=== PATIENT | female | born 1985 | race Two or more races ===

== ENCOUNTER 2024-07-21 11:55 | Inpatient (IN) | payer MEDICAID, OTHER ==
[~2024-07-21] VITALS: Ht 154.9 cm; Wt 87.2 kg
[2024-07-21 13:01] LABS: Basophils # (auto) 0 10 ^3/uL (0-0.2); Basophils % (auto) 0.2 % (0.0-2.0); Eosinophils # (auto) 0 10 ^3/uL (0-0.8); Eosinophils % (auto) 0.1 % (0.0-7.0); Hematocrit 46.1 % (36.0-46.0); Hemoglobin 14.9 g/dL (12.2-16.2); Lymphocytes % (auto) 4.2 % (10.0-50.0); Mean Corpuscular Hemoglobin 27.1 pg (28.0-32.0); Mean Corpuscular Hgb Conc. 32.2 g/dL (32.0-36.0); Monocytes # (auto) 1.4 10 ^3/uL (0-1.3); Monocytes % (auto) 5.7 % (0.0-12.0); Neutrophils # (auto) 21.4 10 ^3/uL (1.6-8.6); Neutrophils % (auto) 89.8 % (37.0-80.0); Nucleated Red Blood Cells % 0.1 %; Platelet Count (auto) 230 10^3/uL (140-450); Red Blood Cells 5.49 10^6/uL (4.0-5.20); Red Cell Distribution Width 14.5 % (11.8-14.3); White Blood Cell 23.8 10^3/uL (4.4-10.8)
[2024-07-21 13:16] LABS: INR 1.02 (0.9-1.15); Partial Thromboplastin Time < 20.0 SEC (24.5-34.5); Prothrombin Time 10.8 sec (9.3-11.8)
[2024-07-21 13:18] LABS: Alanine Aminotransferase 18 U/L (7-40); Albumin 4.7 g/dL (3.2-4.8); Alkaline Phosphatase 113 U/L (46-116); Anion Gap 11 (5-15); BUN/Creatinine Ratio 14.7 (10.0-20.0); Blood Urea Nitrogen 15 mg/dL (9-23); Calcium 9.5 mg/dL (8.7-10.4); Carbon Dioxide 24 mmol/L (20-31); Potassium 3.6 mmol/L (3.5-5.1); Sodium 143 mmol/L (136-145)
[2024-07-21 13:19] LABS: Bilirubin, Total 0.4 mg/dL (0.2-1.0); Total Protein 7.6 g/dL (5.7-8.2)
--- NOTE | 2024-07-21 13:39 | ED.PDOC ---
GI ASSESSMENT HPI Comments HPI: Poor Historian. 39-year-old female presents to emergency department for one day history of periumbilical pain with the associated nausea vomiting diarrhea nonbloody nonbilious yellow in color and some mild dizziness. Patient is ambulatory in the ED. patient is currently on her menstrual cycle for the last three days with some associated lower pelvic cramps that she says is usual for her during her cycle. Incidentally patient status post miscarriage at least two months ago. Her bleeding has stopped three weeks after the miscarriage. Patient states she is on prednisone for recent diagnosis of bronchitis. VITALS: Temp: 98.9 F RR: 17 02 sat : 100 % on room air HR: 105 BP: 124/73 PMH: denies PSH: 1x , cholecystectomy, Social history: denies tobacco use, denies ETOH use, denies drug use Medications: denies Allergies: penicillin REVIEW OF SYSTEMS: CONSTITUTIONAL: Denies acute: fever, diaphoresis, chills, HEAD: Denies acute: headache, photophobia Eyes: Denies acute: Double vision, vision loss, eye pain, eye discharge. EARS: Denies acute: tinnitus, hearing loss, ear discharge, ear pain, THROAT: Denies acute: sore throat, swelling, difficulty swallowing , pain with swall owing, change in voice. NECK: Denies acute: neck pain, neck swelling, stiff neck. HEART: Denies acute : chest pain, palpitations, LUNGS: Denies acute: SOB, wheezing, cough, hemoptysis ABDOMEN: Denies acute: melena , hematemesis, hematochezia SKIN: Denies acute: rash, redness, lesions, itchiness. EXTREMITIES: Denies acute: calf pain, numbness, tingling, weakness, denies pain in extremity. Denies acute: Low back pain. Neuro: Denies acute: focal neurological deficit, motor or sensory focal neurological deficit, tremors, seizure like activity, confusion, change in mental status, loss of bowel or bladder function, cauda equina like symptoms. : Denies acute: dysuria, hematuria, flank pain, increase in urinary frequency. PSYCH: Denies acute: hallucination, suicidal ideation, homicidal ideation. FEMALE: Denies acute: abnormal vaginal bleeding, foul odor, unusual discharge. PHYSICAL EXAM: General: Moderate acute distress, awake and alert. Head: normocephalic, atraumatic. Neck: supple, trachea is midline, no swelling. Throat: Normal phonation. Eyes:, no erythema, no purulent discharge, no proptosis, no icterus. Heart: regular rate, regular rhythm, no significant murmur appreciated. Lungs: no apparent respiratory distress, Able to speak in full sentences. No wheezing, no rhonchi, no crackles. No stridors Clear to auscultation bilaterally. Abdomen: Periumbilical tender to palpation, non distended, soft, no guarding, no rebound, + bowel sounds. Neuro: Awake, Alert, oriented to name, self, situation, follows commands GCS=15. Speech is normal. Skin: no petechia, no purpura, no cyanosis, non-pale, not jaundice. Lower extremities: --no - Pitting edema no deformity, no focal swelling, no calf TTP. Makes eye contact. moves all four extremities. Face: no apparent facial droop. Ambulating in the ED independently. Chief Complaint: Nausea/Vomiting Time Seen by MD: 12:16 Reviewed Notes: Nurses Notes, Allergies Allergies: Coded Allergies: Ciprofloxacin (Verified Allergy, Unknown, 07/21/24) Information Source: Patient Mode of Arrival: Ambulatory Was a procedure done? Was a procedure done?: No X-Ray, Labs, Meds, VS Vital Signs Date Time Temp Pulse Resp B/P (MAP) Pulse Ox O2 Delivery O2 Flow Rate FiO2 07/21/24 20:23 92 12 100 Room Air 07/21/24 20:14 97.7 92 12 103/57 (72) 100 97.7 07/21/24 16:52 98.6 89 18 117/71 (86) 100 98.6 07/21/24 16:52 89 18 100 Room Air 07/21/24 15:32 130/77 07/21/24 12:38 74 07/21/24 12:36 98.9 105 17 124/73 (90) 100 Lab Test 07/21/24 17:00 07/21/24 16:57 07/21/24 14:32 07/21/24 12:50 Range/Units Stool Occult Blood Positive Negative Stool Occult Blood Sample #3 Negative Stool for White Cells Few SARS-CoV-2 Antigen (Rapid) Negative NEGATIVE Lactic Acid Level 2.0 0.4-2.0 mmol/L White Blood Count 23.8 H 4.4-10.8 10^3/uL Red Blood Count 5.49 H 4.0-5.20 10^6/uL Hemoglobin 14.9 12.2-16.2 g/dL Hematocrit 46.1 H 36.0-46.0 % Mean Corpuscular Volume 84.0 80.0-100.0 fL Mean Corpuscular Hemoglobin 27.1 L 28.0-32.0 pg Mean Corpuscular Hemoglobin Concent 32.2 32.0-36.0 g/dL Red Cell Distribution Width 14.5 H 11.8-14.3 % Platelet Count 230 140-450 10^3/uL Mean Platelet Volume 9.3 6.9-10.8 fL Neutrophils (%) (Auto) 89.8 H 37.0-80.0 % Lymphocytes (%) (Auto) 4.2 L 10.0-50.0 % Monocytes (%) (Auto) 5.7 0.0-12.0 % Eosinophils (%) (Auto) 0.1 0.0-7.0 % Basophils (%) (Auto) 0.2 0.0-2.0 % Neutrophils # (Auto) 21.4 H 1.6-8.6 10 ^3/uL Lymphocytes # (Auto) 1.0 0.4-5.4 10 ^3/uL Monocytes # (Auto) 1.4 H 0-1.3 10 ^3/uL Eosinophils # (Auto) 0 0-0.8 10 ^3/uL Basophils # (Auto) 0 0-0.2 10 ^3/uL Nucleated Red Blood Cells 0.1 % Prothrombin Time 10.8 9.3-11.8 sec Prothrombin Time INR 1.02 0.9-1.15 Activated Partial Thromboplast Time < 20.0 L 24.5-34.5 SEC Sodium Level 143 136-145 mmol/L Potassium Level 3.6 3.5-5.1 mmol/L Chloride Level 108 H 98-107 mmol/L Carbon Dioxide Level 24 20-31 mmol/L Anion Gap 11 5-15 Blood Urea Nitrogen 15 9-23 mg/dL Creatinine 1.02 0.550-1.02 mg/dL Glomerular Filtration Rate Calc 72 >90 mL/min BUN/Creatinine Ratio 14.7 10.0-20.0 Serum Glucose 135 H 74-106 mg/dL Calcium Level 9.5 8.7-10.4 mg/dL Magnesium Level 1.9 1.6-2.6 mg/dL Total Bilirubin 0.4 0.2-1.0 mg/dL Aspartate Amino Transferase (AST) 10 L 13-40 U/L Alanine Aminotransferase (ALT) 18 7-40 U/L Alkaline Phosphatase 113 46-116 U/L Total Protein 7.6 5.7-8.2 g/dL Albumin 4.7 3.2-4.8 g/dL Lipase 26 12-53 U/L Beta HCG, Quantitative 2.2 1.5-4.2 mIU/mL Test 07/21/24 12:34 Range/Units Urine Color Dark-brown Yellow Urine Clarity Ex.turbid Clear Urine pH 5.5 5.0-9.0 Urine Specific [place] 1.025 1.001-1.035 Urine Protein 2+ H Negative Urine Ketones Trace Negative Urine Blood 3+ H Negative /uL Urine Nitrite Negative Negative Urine Bilirubin Negative Negative Urine Urobilinogen Normal Negative mg/dL Urine Leukocyte Esterase 2+ Negative /uL Urine RBC 7730 0 - 4 /hpf Urine WBC 63 0 - 5 /hpf Urine Squamous Epithelial Cells Mod <5 /hpf Urine Bacteria None seen None Seen /hpf Urine Mucus Moderate None Seen Urine Glucose Normal Normal mg/dL Current Medications Medications (Trade) Dose Ordered Sig/[place] Route Start Time Stop Time Status Last Admin Sodium Chloride 1,000 ml @ 1,000 mls/hr Q1H ONCE IV 07/21/24 13:45 07/21/24 14:44 DC 07/21/24 15:30 Ondansetron HCl (Zofran) 8 mg ONCE ONCE IV 07/21/24 13:45 07/21/24 13:46 DC 07/21/24 15:33 Fentanyl Citrate 100 mcg ONCE ONCE IV 07/21/24 13:45 07/21/24 13:46 DC 07/21/24 15:32 Metronidazole 100 ml @ 100 mls/hr ONCE ONCE IV 07/21/24 15:00 07/21/24 15:59 DC 07/21/24 18:31 Ciprofloxacin 200 ml @ 200 mls/hr ONCE ONCE IV 07/21/24 20:15 07/21/24 21:14 DC 07/21/24 20:30 Diphenhydramine HCl (Benadryl Injection) 25 mg ONCE ONCE IV 07/21/24 21:15 07/21/24 21:16 DC 07/21/24 21:[address] [address] Ph: [phone] DIAGNOSTIC IMAGING Diagnostic Imaging Report : [id number] Signed PATIENT: DANGELO LITTLE MACCT: [id number] UNIT: [id number] : 1985 LOC: ER ROOM / BED: / AGE / SEX: 39 / F ADM STATUS: REG ER SERVICE [id number] ORDERING PHYSICIAN: PATRICE FELDMAN DO PROCEDURE(s): ABPL - CT AB PEL WO CON-NO ORAL OR IV REASON: Umbilical pain n/v/d ORDER NUMBER(s): [id number], ACCESSION NUMBER(s): [id number] Exam: CT CT AB PEL WO CON-NO ORAL OR IV History: Umbilical pain n/v/d Comparison Study: None available at time of dictation. TECHNIQUE: Multidetector CT of the abdomen was performed from lung bases to pubic symphysis. Imaging was performed without IV contrast. Axial, coronal and sagittal multiplanar reformats were obtained from the axial data set by the technologist. Radiation Dose Information: CT Dose: CTDI volume is 13.04 mGy. Dose-length product is 662.69 mGy*cm FINDINGS: Evaluation of solid organs is limited due to lack of intravenous contrast use. Findings: Lung Bases: No acute or significant lung base finding. Normal heart size. No pleural or pericardial effusion. Liver: The liver is normal in size. No focal lesions. Gallbladder and Biliary Tree: Gallbladder has been surgically removed. Spleen: Unremarkable Pancreas: The pancreas is grossly normal in appearance. Adrenal Glands: Unremarkable Kidneys: Kidneys are grossly normal without calculi or hydronephrosis. Bladder: Grossly unremarkable for degree of distention. Bowel: The stomach is grossly normal in appearance. Small bowel and colon are normal in caliber and distribution. The appendix is not visualized; however, no secondary findings of acute appendicitis identified. Ascites: Absent Lymphadenopathy: No mesenteric, retroperitoneal or periportal lymphadenopathy. Abdominal Wall and Mesentery: Unremarkable. Vasculature: The visualized abdominal aorta is normal in size and caliber. Evaluation of abdominal and pelvic vessels is limited due to lack of intravenous contrast. Pelvic Organs: Unremarkable Musculoskeletal: No aggressive focal bony lesions, acute fractures or dislocation. Soft tissues: Unremarkable IMPRESSION: 1. Gallbladder is been surgically removed. 2. There is no abnormally dilated bowel. 3. There are no findings of umbilical hernia. 4. Pancreas appears normal. Radiation optimization: All CT scans at this facility use at least one of these dose optimization techniques: automated exposure control mA and/or kV adjustment per patient size (includes targeted exams where dose is matched to clinical indication) or iterative reconstruction. ATED BY: CHELA HOGUE Jr., DO DICTATED DATE/TIME: 07/21/241433 SIGNED BY: CHELA HOGUE Jr., SIGNED DATE/TIME: 07/21/241433 CC: [place] [id number] Ph: [phone] DIAGNOSTIC IMAGING Diagnostic Imaging Report : [id number] Signed PATIENT: DANGELO LITTLE MACCT: [id number] UNIT: [id number] : 1985 LOC: ER ROOM / BED: / AGE / SEX: 39 / F ADM STATUS: REG ER SERVICE [id number] ORDERING PHYSICIAN: PATRICE FELDMAN DO PROCEDURE(s): PELUS - PELVIC REASON: vag bleed ORDER NUMBER(s): [id number], ACCESSION NUMBER(s): [id number] EXAM: US Pelvis Transabdominal, Complete CLINICAL INDICATION: vag bleed TECHNIQUE: Real-time complete transabdominal pelvic ultrasound with image documentation. COMPARISON: None FINDINGS: UTERUS/CERVIX: Nabothian cysts in the cervix. No myometrial mass. The uterus measures 7 x 5 x 5 cm. The endometrial stripe measures 0.33 cm in thickness. RIGHT OVARY: Unremarkable. Normal blood flow. The right ovary measures 3 x 2 x 3 cm. LEFT OVARY: Left ovary not visualized. FREE FLUID: No free fluid. BLADDER: Unremarkable as visualized. Wall is normal thickness for degree of distention. OTHER FINDINGS: . . IMPRESSION: Left ovary not visualized. Otherwise, unremarkable exam. ATED BY: VIBHA MARR MD DICTATED DATE/TIME: 07/21/24 1437 SIGNED BY: VIBHA MARR MD SIGNED DATE/TIME: 07/21/24 1437 CC: Time of 1ST Reevaluation: 20:09 Reevaluation 1ST: Improved Time of 2ND Reevaluation: 21:05 (The case was discussed with the admitting team (HPI, physical exam, labs and diagnostic tests that were available at the time of disposition, ED course, treatment plan) on the phone. They agreed to admit the patient to their service and assume care of this patient from this point forward. P[facility]EL SANTAMARIA. ) Patient Education/Counseling: Diagnosis, Treatment Family Education/Counseling: No Family Present Comments MDM: Patient presented with the above HPI.----- periumbilical pain -workup was initiated. patient was found with the above mentioned diagnosis. the following medications were ordered: benadyrl, cipro, flagyl, fentanyl, zofran, IV fluids the following tests were ordered:stool bacterial culture, ova and parasite, C diff, blood culture, stool occult blood, stool WBC, lactic acid, magnesium, lipase, COVID, CT abdomen and pelvis, pelvic US, type and screen, PT/PTT, Pt time, UA, CBC, CMP, beta HCG, EKG x 1 Patient ED course and VS have been stabilized. Patient has been reassessed in the ED and remained in a stable condition. Patient has been observed in the ED adequate length of time to insure improvement/stability. Escalation of care considered: Consideration of escalation to observation or admission. patient was ADMITTED to the medicine team for further evaluation and treatment of their presentation. All the reports of any imaging studies that were ordered by myself were reviewed by myself. Departure 1 Departure Time of Disposition: 14:49 Impression: Primary Impression: Periumbilical pain Additional Impressions: Nausea vomiting and diarrhea Leukocytosis Gastroenteritis Infectious diarrhea in adult patient Disposition: ADMITTED INPATIENT Admit to: Tele Condition: Guarded Discharged With: Self I personally scribed for PATRICE FELDMAN DO ([facility] on 07/21/24 at 13:39. Electronically submitted by Yuni Rios ([email or web address]). I personally scribed for PATRICE FELDMAN DO ([facility] on 07/21/24 at 16:47. Electronically submitted by Yuni Rios ([email or web address]). I personally scribed for PATRICE FELDMAN DO ([email or web address]) on 07/21/24 at 22:10. Electronically submitted by Yuni Rios ([facility] PATRICE FELDMAN DO Jul 21, 2024 13:39
[2024-07-21 13:41] LABS: Aspartate Aminotransferase 10 U/L (13-40); Chloride 108 mmol/L (98-107); Glucose 135 mg/dL (74-106)
[2024-07-21 14:08] LABS: Magnesium 1.9 mg/dL (1.6-2.6)
--- NOTE | 2024-07-21 14:36 | DVH ---
Exam: CT CT AB PEL WO CON-NO ORAL OR IV History: Umbilical pain n/v/d Comparison Study: None available at time of dictation. TECHNIQUE: Multidetector CT of the abdomen was performed from lung bases to pubic symphysis. Imaging was performed without IV contrast. Axial, coronal and sagittal multiplanar reformats were obtained fr om the axial data set by the technologist. Radiation Dose Information: CT Dose: CTDI volume is 13.04 mGy. Dose-length product is 662.69 mGy*cm FINDINGS: Evaluation of solid organs is limited due to lack of intravenous contrast use. Findings: Lung Bases: No acute or significant lung base finding. Normal heart size. No pleural or pericardial effusion. Liver: The liver is normal in size. No focal lesions. Gallbladder and Biliary Tree: Gallbladder has been surgically removed. Spleen: Unremarkable Pancreas: The pancreas is grossly normal in appearance. Adrenal Glands: Unremarkable Kidneys: Kidneys are grossly normal without calculi or hydronephrosis. Bladder: Grossly unremarkable for degree of distention. Bowel: The stomach is grossly normal in appearance. Small bowel and colon are normal in caliber and d istribution. The appendix is not visualized; however, no secondary findings of acute appendicitis id entified. Ascites: Absent Lymphadenopathy: No mesenteric, retroperitoneal or periportal lymphadenopathy. Abdominal Wall and Mesentery: Unremarkable. Vasculature: The visualized abdominal aorta is normal in size and caliber. Evaluation of abdominal a nd pelvic vessels is limited due to lack of intravenous contrast. Pelvic Organs: Unremarkable Musculoskeletal: No aggressive focal bony lesions, acute fractures or dislocation. Soft tissues: Unremarkable IMPRESSION: 1. Gallbladder is been surgically removed. 2. There is no abnormally dilated bowel. 3. There are no findings of umbilical hernia. 4. Pancreas appears normal. Radiation optimization: All CT scans at this facility use at least one of these dose optimization te chniques: automated exposure control mA and/or kV adjustment per patient size (includes targeted exa ms where dose is matched to clinical indication) or iterative reconstruction.
--- NOTE | 2024-07-21 14:39 | DVH ---
EXAM: US Pelvis Transabdominal, Complete CLINICAL INDICATION: vag bleed TECHNIQUE: Real-time complete transabdominal pelvic ultrasound with image documentation. COMPARISON: None FINDINGS: UTERUS/CERVIX: Nabothian cysts in the cervix. No myometrial mass. The uterus measures 7 x 5 x 5 cm . The endometrial stripe measures 0.33 cm in thickness. RIGHT OVARY: Unremarkable. Normal blood flow. The right ovary measures 3 x 2 x 3 cm. LEFT OVARY: Left ovary not visualized. FREE FLUID: No free fluid. BLADDER: Unremarkable as visualized. Wall is normal thickness for degree of distention. OTHER FINDINGS: . . IMPRESSION: Left ovary not visualized. Otherwise, unremarkable exam.
[2024-07-21] MEDS: SODIUM CHLORIDE 0.9% 1,000 ML IV ONE (15:30)
[2024-07-21] MEDS: fentaNYL CITRATE 100 MCG/2 ML VL IV ONE (15:32)
[2024-07-21] MEDS: ONDANSETRON HCL 4 MG/2 ML VIAL IV ONE (15:33)
[2024-07-21 17:11] LABS: Urine Bacteria None Seen /hpf (None Seen)
[2024-07-21 17:28] LABS: Urine Blood 3+ /uL (Negative); Urine Clarity Ex.Turbid (Clear); Urine Color Dark-Brown (Yellow); Urine Mucus MODERATE (None Seen); Urine Protein, UAD 2+ (Negative); Urine Specific Gravity 1.025 (1.001-1.035); Urine Urobilinogen Normal (Negative); Urine WBC 63 /hpf (0 - 5); Urine pH 5.5 (5.0-9.0)
[2024-07-21 17:33] LABS: COVID19 ANTIGEN SOFIA FIA NEGATIVE (NEGATIVE)
[2024-07-21] MEDS: metroNIDAZOLE 500MG/100ML 100 ML IV ONE (18:31)
[2024-07-21] MEDS: CIPROFLOXACIN 400MG/200ML 200 ML IV ONE (20:30)
[2024-07-21] MEDS: diphenhdrAMINE HCL 50 MG/1 ML VL IV ONE (21:12)
[2024-07-21] MEDS ORDERED: ONDANSETRON HCL 4 MG/2 ML VIAL IV PRN (21:30)
[2024-07-21] MEDS ORDERED: NITROGLYCERIN 0.4 MG SL TAB SL PRN (21:30)
[2024-07-21] MEDS ORDERED: MORPHINE SULFATE INJ 2 MG/ml SYRG IV PRN ×2 (21:30)
[2024-07-21 22:37] VITALS: PULSE 79; RESP 12; O2SAT 98
[2024-07-21] MEDS: SODIUM CHLORIDE 0.9% 1,000 ML IV SCH (22:45)
[2024-07-21] MEDS: ACETAMINOPHEN 325 MG TAB PO PRN (22:46)
[2024-07-22] VITALS (10 sets, daily range): BP systolic 90–132; BP diastolic 50–87; PULSE 64–85; RESP 14–18; TEMP 97.3–98.2; O2SAT 96–100
--- NOTE | 2024-07-22 01:16 | DVHHP2 ---
HINA AGRAWAL SURGICAL PROCESSOR 07/22/24 0116: History of Present Illness Reason for Visit: Nausea, vomiting, diarrhea History of Present Illness 39 year-old female presents with complaints of abdominal pain, nausea, vomiting, diarrhea times three days. Patient endorsed blood in stool. Also endorses generalized weakness. Patient was recently diagnosed with bronchitis and placed on steroids. No reported recent antibiotic use. At this time patient denies fev ers, chills, recent contacts, Short of breath, chest pain, hematemesis. Smoke: No ALCOHOL: none Drugs: None Lives: with Family Review of Systems Constitutional: Yes: Weakness, Malaise; No: Fever, Chills, Sweats, Other Eyes: No: Pain, Vision change, Conjunctivae inflammation, Eyelid inflammation, Other, Redness ENT: No: Ear pain, Ear discharge, Nose pain, Nose discharge, Nose congestion, Mouth pain, Mouth swelling, Throat pain, Throat swelling, Other Respiratory: No: Cough, Dry, Shortness of breath, SOB with excertion, Wheezing, Hemoptysis, Pleuritic Pain, Sputum, Wheezing, Other Cardiovascular: No: Chest Pain, Palpitations, Orthopnea, Paroxysmal Noc. Dyspnea, Edema, Lt Headedness, Other Gastrointestinal: Nausea, Vomiting, Abdominal Pain, Diarrhea, Constipation, Melena, Hematochezia, Other Genitourinary: No Dysuria, No Frequency, No Incontinence, No Hematuria, No Retention, No Other Musculoskeletal: No: other, neck pain, shoulder pain, arm pain, back pain, hand pain, leg pain, foot pain Skin: No: Rash, Lesions, Jaundice, Bruising, Other Neurological: No: Weakness, Numbness, Incoordination, Change in speech, Confusion, Seizures, Other Allergies: Coded Allergies: Ciprofloxacin (Verified Allergy, Unknown, 07/21/24) Medications Current Medications Medications Dose Ordered Sig/[place] Route Start Time Stop Time Status Last Admin Dose Admin Sodium Chloride 1,000 ml @ 100 mls/hr Q10H IV 07/21/24 21:30 07/21/24 22:45 100 MLS/HR Acetaminophen 650 mg Q6HP PRN PO 07/21/24 21:30 07/21/24 22:46 650 MG Acetaminophen/ Hydrocodone Bitart 1 tab Q6HP PRN PO 07/21/24 21:30 Ondansetron HCl 4 mg Q4HP PRN IV 07/21/24 21:30 Morphine Sulfate 2 mg Q4HPRN PRN IV 07/21/24 21:30 Nitroglycerin 0.4 mg Q5MINP PRN SL 07/21/24 21:30 Morphine Sulfate 2 mg Q30M PRN IV 07/21/24 21:30 Metronidazole 100 ml @ 100 mls/hr Q8H IV 07/22/24 02:30 Ceftriaxone Sodium 50 ml @ 100 mls/hr DAILY IV 07/22/24 10:00 Exam Vital Signs Vital Signs Date Time Temp Pulse Resp B/P (MAP) Pulse Ox O2 Delivery O2 Flow Rate FiO2 07/22/24 00:00 72 07/22/24 00:00 98.9 10 122/79 (93) 100 98.9 07/21/24 22:37 Room Air* 0 21 General Appearance: Alert, Oriented X3, Cooperative HEENT: Atraumatic, PERRLA Respiratory: Clear to auscultation, Normal air movement Cardiovascular: Regular rate, Normal S1, Normal S2 Abdominal: Normal bowel sounds, Soft, Other (Mild tenderness to palpation) Extremities: No clubbing, No cyanosis, No edema Skin: No rashes, No breakdown Neuro: Normal gait, Normal speech Psych/Mental Status: Mental status NL, Mood NL Labs/Xrays Labs Test 07/21/24 17:00 07/21/24 16:57 07/21/24 14:32 07/21/24 12:50 Range/Units Stool Occult Blood Positive Negative Stool Occult Blood Sample #3 Negative Stool for White Cells Few SARS-CoV-2 Antigen (Rapid) Negative NEGATIVE Lactic Acid Level 2.0 0.4-2.0 mmol/L White Blood Count 23.8 H 4.4-10.8 10^3/uL Red Blood Count 5.49 H 4.0-5.20 10^6/uL Hemoglobin 14.9 12.2-16.2 g/dL Hematocrit 46.1 H 36.0-46.0 % Mean Corpuscular Volume 84.0 80.0-100.0 fL Mean Corpuscular Hemoglobin 27.1 L 28.0-32.0 pg Mean Corpuscular Hemoglobin Concent 32.2 32.0-36.0 g/dL Red Cell Distribution Width 14.5 H 11.8-14.3 % Platelet Count 230 140-450 10^3/uL Mean Platelet Volume 9.3 6.9-10.8 fL Neutrophils (%) (Auto) 89.8 H 37.0-80.0 % Lymphocytes (%) (Auto) 4.2 L 10.0-50.0 % Monocytes (%) (Auto) 5.7 0.0-12.0 % Eosinophils (%) (Auto) 0.1 0.0-7.0 % Basophils (%) (Auto) 0.2 0.0-2.0 % Neutrophils # (Auto) 21.4 H 1.6-8.6 10 ^3/uL Lymphocytes # (Auto) 1.0 0.4-5.4 10 ^3/uL Monocytes # (Auto) 1.4 H 0-1.3 10 ^3/uL Eosinophils # (Auto) 0 0-0.8 10 ^3/uL Basophils # (Auto) 0 0-0.2 10 ^3/uL Nucleated Red Blood Cells 0.1 % Prothrombin Time 10.8 9.3-11.8 sec Prothrombin Time INR 1.02 0.9-1.15 Activated Partial Thromboplast Time < 20.0 L 24.5-34.5 SEC Sodium Level 143 136-145 mmol/L Potassium Level 3.6 3.5-5.1 mmol/L Chloride Level 108 H 98-107 mmol/L Carbon Dioxide Level 24 20-31 mmol/L Anion Gap 11 5-15 Blood Urea Nitrogen 15 9-23 mg/dL Creatinine 1.02 0.550-1.02 mg/dL Glomerular Filtration Rate Calc 72 >90 mL/min BUN/Creatinine Ratio 14.7 10.0-20.0 Serum Glucose 135 H 74-106 mg/dL Calcium Level 9.5 8.7-10.4 mg/dL Magnesium Level 1.9 1.6-2.6 mg/dL Total Bilirubin 0.4 0.2-1.0 mg/dL Aspartate Amino Transferase (AST) 10 L 13-40 U/L Alanine Aminotransferase (ALT) 18 7-40 U/L Alkaline Phosphatase 113 46-116 U/L Total Protein 7.6 5.7-8.2 g/dL Albumin 4.7 3.2-4.8 g/dL Lipase 26 12-53 U/L Beta HCG, Quantitative 2.2 1.5-4.2 mIU/mL Test 07/21/24 12:34 Range/Units Urine Color Dark-brown Yellow Urine Clarity Ex.turbid Clear Urine pH 5.5 5.0-9.0 Urine Specific [place] 1.025 1.001-1.035 Urine Protein 2+ H Negative Urine Ketones Trace Negative Urine Blood 3+ H Negative /uL Urine Nitrite Negative Negative Urine Bilirubin Negative Negative Urine Urobilinogen Normal Negative mg/dL Urine Leukocyte Esterase 2+ Negative /uL Urine RBC 7730 0 - 4 /hpf Urine WBC 63 0 - 5 /hpf Urine Squamous Epithelial Cells Mod <5 /hpf Urine Bacteria None seen None Seen /hpf Urine Mucus Moderate None Seen Urine Glucose Normal Normal mg/dL Assessment/Plan Assessment/Plan Abdominal pain Gastroenteritis Infectious diarrhea Leukocytosis Acute UTI Plan Admit telemetry Consult infectious disease. Blood cultures pending. Stool Ova parasites, CDiff pending Consult Gastroenterology IVF IV ABX Clear liquid diet Gi ppx pepcid / DVT ppx scd Plan discussed with: Patient My Orders Orders - HINA AGRAWAL NP Procedure Category Date Status Time Admit ADMIT 07/21/24 Transmitted 21:18 Code Status CODE 07/21/24 Transmitted 21:18 Vital Signs [facility] 07/21/24 In Process 21:18 Review Orders With [facility] 07/21/24 In Process Adm. 21:18 Encourage Activity As [facility] 07/21/24 In Process Tolerate 21:[address] 0.9% [facility] 07/21/24 In Process 21:30 Oxygen By Face Mask RT 07/21/24 Transmitted 21:18 Acetaminophen Tablet PHA 07/21/24 In Process (Tylenol Tablet) 21:30 Notify Of Changes [facility] 07/21/24 In Process From Base 21:18 Advance Directive [facility] 07/21/24 In Process 21:18 Basic Metabolic Panel LAB 07/22/24 Logged 05:00 Basic Metabolic Panel LAB 07/23/24 Verified 05:00 Basic Metabolic Panel LAB 07/24/24 Verified 05:00 Basic Metabolic Panel LAB 07/25/24 Verified 05:00 Basic Metabolic Panel LAB 07/26/24 Verified 05:00 Complete Blood Count LAB 07/22/24 Logged 05:00 Complete Blood Count LAB 07/23/24 Verified 05:00 Complete Blood Count LAB 07/24/24 Verified 05:00 Complete Blood Count LAB 07/25/24 Verified 05:00 Complete Blood Count LAB 07/26/24 Verified 05:00 Patient Condition ORDERS 07/21/24 Transmitted 21:18 Allergies [place] 07/21/24 In Process 21:18 Hydrocodone-Acet PHA 07/21/24 In Process 5/325mg Tab ([place] 21:30 Ondansetron Hcl PHA 07/21/24 In Process (Zofran) 21:30 Morphine Sulfate PHA 07/21/24 In Process Injection 21:30 Sequential [place] 07/21/24 In Process Compression Device Nitroglycerin PHA 07/21/24 In Process Sublingual (Ntrostat 21:30 Morphine Sulfate PHA 07/21/24 In Process Injection 21:30 Stat Ekg For Chest [place] 07/21/24 In Process Pain 21:18 Notify Md Of Changes [facility] 07/21/24 In Process From Base 21:18 Hostess Host For [facility] 07/21/24 In Process 24 Hours 21:18 Emergency Dysrhythmia [facility] 07/21/24 In Process Protocol 21:18 Rhythm Strips Once [facility] 07/21/24 In Process Every Shift 21:18 Oxygen By Nasal RT 07/21/24 Transmitted Cannula 21:18 * Gi [facility] Carpenter Apprentice CONS 07/21/24 Transmitted 21:18 Ceftriaxone 1gm/50ml PHA 07/22/24 In Process D5w (Rocephin) 10:00 * Infectious Lenora- Dr. CONS 07/21/24 Transmitted Mallad 21:18 Clear Liq Diet DIET 07/22/24 Transmitted Breakfast Metronidazole PHA 07/22/24 In Process 500mg/100ml (Flagyl 02:30 Date of Service: Jul 22, 2024 Billing Provider: ELDA CHANG MD Common Visit Codes: NOT BILLABLE ELDA CHANG MD 07/22/24 1431: Review of Systems Allergies: Coded Allergies: Ciprofloxacin (Verified Allergy, Unknown, 07/21/24) Additional Comments Additional Comments Additional Comments Patient's chart is reviewed and the patient is seen and evaluated and admitted by nurse practitioner this morning. I agree with nurse practitioner's evaluation, documentation, assessment and care plan as outlined. HINA AGRAWAL NP Jul 22, 2024 01:16 ELDA CHANG MD Jul 22, 2024 14:31
[2024-07-22] MEDS: metroNIDAZOLE 500MG/100ML 100 ML IV SCH (02:31)
[2024-07-22 05:49] LABS: Basophils # (auto) 0 10 ^3/uL (0-0.2); Basophils % (auto) 0.1 % (0.0-2.0); Eosinophils # (auto) 0 10 ^3/uL (0-0.8); Eosinophils % (auto) 0.5 % (0.0-7.0); Hematocrit 35.8 % (36.0-46.0); Lymphocytes # (auto) 1.4 10 ^3/uL (0.4-5.4); Lymphocytes % (auto) 19.7 % (10.0-50.0); Mean Corpuscular Hemoglobin 27.6 pg (28.0-32.0); Mean Corpuscular Hgb Conc. 33.5 g/dL (32.0-36.0); Mean Corpuscular Volume 82.2 fL (80.0-100.0); Monocytes # (auto) 0.5 10 ^3/uL (0-1.3); Monocytes % (auto) 7.5 % (0.0-12.0); Neutrophils # (auto) 5.1 10 ^3/uL (1.6-8.6); Neutrophils % (auto) 72.2 % (37.0-80.0); Nucleated Red Blood Cells % 0.2 %; Platelet Count (auto) 162 10^3/uL (140-450); Red Blood Cells 4.36 10^6/uL (4.0-5.20); Red Cell Distribution Width 14.5 % (11.8-14.3)
[2024-07-22 06:06] LABS: Anion Gap 7 (5-15); Carbon Dioxide 24 mmol/L (20-31); Sodium 142 mmol/L (136-145)
[2024-07-22 06:12] LABS: BUN/Creatinine Ratio 20.5 (10.0-20.0); Blood Urea Nitrogen 16 mg/dL (9-23); Glucose 98 mg/dL (74-106)
[2024-07-22 06:17] LABS: Chloride 111 mmol/L (98-107)
[2024-07-22] MEDS: POTASSIUM CHL 20 Meq TABLET PO ONE ×2 (06:38→15:55)
--- NOTE | 2024-07-22 07:04 | ECG ---
[facility] Test Date: 2024-07-21 Test Time: 12:38:59 Pat Name: DANGELO LITTLE Department: ER Room: 0239T Gender: F Curriculum Designer: KULWANT : 1985 Requested By: PATRICE FELDMAN Order Number: [id number] Reading MD: Measurements Intervals [place] Rate: 74 P: 39 [place]: 111 QRS: 74 QRSD: 92 T: 41 QT: 404 QTc: 449 Interpretive Statements Sinus rhythm Borderline short [place] interval Please click the below link to view image of tracing.
[2024-07-22] MEDS: cefTRIAXone 1GM/50ML D5W 50 ML IV SCH (09:44)
[2024-07-22] MEDS: HYDROcodone-ACET 5/325MG TAB PO PRN (11:28)
[2024-07-22] MEDS: SOD CHL 0.45% WITH 20MEQ KCL 1,000 ML IV SCH (15:54)
--- NOTE | 2024-07-22 19:06 | DVHINCON2 ---
Family History: Diabetes mellitus G8 MOTHER FH: heart attack G8 FATHER High cholesterol G8 FATHER Allergies: Coded Allergies: Ciprofloxacin (Verified Allergy, Unknown, 07/21/24) Home Meds No Active Prescriptions or Reported Meds Current Medications Current Medications Medications (Trade) Dose Ordered Sig/[place] Route PRN Reason Start Time Stop Time Status Last Admin Sodium Chloride 1,000 ml @ 100 mls/hr Q10H IV 07/21/24 21:30 07/22/24 14:30 DC 07/22/24 11:27 Acetaminophen (Tylenol Tablet) 650 mg Q6HP PRN PO PAIN SCALE 1-3 OR TEMP>100.4 07/21/24 21:30 07/21/24 22:46 Acetaminophen/ Hydrocodone Bitart ([place] 5/325MG Tab) 1 tab Q6HP PRN PO MODERATE PAIN (4-6 PAIN SCALE) 07/21/24 21:30 07/22/24 11:28 Ondansetron HCl (Zofran) 4 mg Q4HP PRN IV NAUSEA / VOMITING 07/21/24 21:30 Morphine Sulfate 2 mg Q4HPRN PRN IV SEVERE PAIN (7-10 PAIN SCALE) 07/21/24 21:30 Nitroglycerin (Ntrostat Sublingual) 0.4 mg Q5MINP PRN SL FOR CHEST PAIN 07/21/24 21:30 Morphine Sulfate 2 mg Q30M PRN IV FOR CHEST PAIN 07/21/24 21:30 Metronidazole 100 ml @ 100 mls/hr Q8H IV 07/22/24 02:30 07/22/24 18:11 Ceftriaxone Sodium 50 ml @ 100 mls/hr DAILY IV 07/22/24 10:00 07/22/24 09:44 Potassium Chloride/Sodium Chloride 1,000 ml @ 100 mls/hr Q10H IV 07/22/24 14:30 07/22/24 15:54 Vital Signs Vital Signs Date Time Temp Pulse Resp B/P (MAP) Pulse Ox O2 Delivery O2 Flow Rate FiO2 07/22/24 16:53 97.3 64 14 113/75 (88) 99 97.3 07/22/24 08:00 Room Air* 0 21 Labs/Diagnostic Data Labs Test 07/22/24 18:43 07/22/24 05:27 07/21/24 17:00 07/21/24 16:57 Range/Units White Blood Count 7.0 # 4.4-10.8 10^3/uL Red Blood Count 4.36 4.0-5.20 10^6/uL Hemoglobin 12.0 #L 12.2-16.2 g/dL Hematocrit 35.8 #L 36.0-46.0 % Mean Corpuscular Volume 82.2 80.0-100.0 fL Mean Corpuscular Hemoglobin 27.6 L 28.0-32.0 pg Mean Corpuscular Hemoglobin Concent 33.5 32.0-36.0 g/dL Red Cell Distribution Width 14.5 H 11.8-14.3 % Platelet Count 162 140-450 10^3/uL Mean Platelet Volume 9.3 6.9-10.8 fL Neutrophils (%) (Auto) 72.2 37.0-80.0 % Lymphocytes (%) (Auto) 19.7 10.0-50.0 % Monocytes (%) (Auto) 7.5 0.0-12.0 % Eosinophils (%) (Auto) 0.5 0.0-7.0 % Basophils (%) (Auto) 0.1 0.0-2.0 % Neutrophils # (Auto) 5.1 1.6-8.6 10 ^3/uL Lymphocytes # (Auto) 1.4 0.4-5.4 10 ^3/uL Monocytes # (Auto) 0.5 0-1.3 10 ^3/uL Eosinophils # (Auto) 0 0-0.8 10 ^3/uL Basophils # (Auto) 0 0-0.2 10 ^3/uL Nucleated Red Blood Cells 0.2 % Stool Occult Blood Positive Negative Stool Occult Blood Sample #3 Negative Stool for White Cells Few SARS-CoV-2 Antigen (Rapid) Negative NEGATIVE Test 07/21/24 14:32 07/21/24 12:50 07/21/24 12:34 Range/Units Lactic Acid Level 2.0 0.4-2.0 mmol/L Prothrombin Time 10.8 9.3-11.8 sec Prothrombin Time INR 1.02 0.9-1.15 Activated Partial Thromboplast Time < 20.0 L 24.5-34.5 SEC Lipase 26 12-53 U/L Beta HCG, Quantitative 2.2 1.5-4.2 mIU/mL Urine Color Dark-brown Yellow Urine Clarity Ex.turbid Clear Urine pH 5.5 5.0-9.0 Urine Specific [place] 1.025 1.001-1.035 Urine Protein 2+ H Negative Urine Ketones Trace Negative Urine Blood 3+ H Negative /uL Urine Nitrite Negative Negative Urine Bilirubin Negative Negative Urine Urobilinogen Normal Negative mg/dL Urine Leukocyte Esterase 2+ Negative /uL Urine RBC 7730 0 - 4 /hpf Urine WBC 63 0 - 5 /hpf Urine Squamous Epithelial Cells Mod <5 /hpf Urine Bacteria None seen None Seen /hpf Urine Mucus Moderate None Seen Urine Glucose Normal Normal mg/dL Microbiology Date/Time Source Procedure Growth Status 07/21/24 17:00 Stool Stool Culture - Preliminary Resulted 07/21/24 17:00 Stool Shiga Toxin I & II - Final Resulted 07/21/24 17:00 Stool Clostridium difficile Toxin Assay - Final Resulted 07/21/24 14:32 Blood Blood Culture - Preliminary NO GROWTH AFTER 24 HOURS OF INCUBATION. Resulted YU MATHEWS MD Jul 22, 2024 19:06
[2024-07-22 19:21] LABS: Alanine Aminotransferase 12 U/L (7-40); Albumin 3.5 g/dL (3.2-4.8); Alkaline Phosphatase 73 U/L (46-116); Anion Gap 6 (5-15); BUN/Creatinine Ratio 12.2 (10.0-20.0); Blood Urea Nitrogen 10 mg/dL (9-23); Carbon Dioxide 25 mmol/L (20-31); Glucose 75 mg/dL (74-106); Magnesium 1.9 mg/dL (1.6-2.6); Potassium 3.5 mmol/L (3.5-5.1); Sodium 142 mmol/L (136-145)
[2024-07-22 19:24] LABS: Aspartate Aminotransferase < 8 U/L (13-40); Bilirubin, Total 0.3 mg/dL (0.2-1.0); Calcium 8.1 mg/dL (8.7-10.4); Chloride 111 mmol/L (98-107); Total Protein 5.6 g/dL (5.7-8.2)
--- NOTE | 2024-07-22 21:50 | DVHINCON2 ---
Date of service: Jul 22, 2024 Referring Physician Matias Jordan Reason for Consultation Abdominal pain diarrhea and heme-positive stools History of Present Illness 39 year-old female presents with complaints of abdominal pain, nausea, vomiting, diarrhea times three days. Patient endorsed blood in stool. Also endorses generalized weakness. Patient was recently diagnosed with bronchitis and placed on steroids. No reported recent antibiotic use. Patient had severe leukocytosis with left shift that is now resolving. She has evidence of possible hematuria and UTI but no bacteria were seen on UA. Stool showed a few WBC and stool occult was positive. However the patient is also on her periods and is having menstrual cramps which could explain the blood in the urine Past Medical History Sleep apnea Past Surgical History x1 Family History: Diabetes mellitus G8 MOTHER FH: heart attack G8 FATHER High cholesterol G8 FATHER Allergies: Coded Allergies: Ciprofloxacin (Verified Allergy, Unknown, 07/21/24) Home Meds No Active Prescriptions or Reported Meds Current Medications Current Medications Medications (Trade) Dose Ordered Sig/[place] Route PRN Reason Start Time Stop Time Status Last Admin Metronidazole 100 ml @ 100 mls/hr Q8H IV 07/22/24 02:30 07/22/24 18:11 Ceftriaxone Sodium 50 ml @ 100 mls/hr DAILY IV 07/22/24 10:00 07/22/24 09:44 Potassium Chloride/Sodium Chloride 1,000 ml @ 100 mls/hr Q10H IV 07/22/24 14:30 07/22/24 15:54 Vital Signs Vital Signs Date Time Temp Pulse Resp B/P (MAP) Pulse Ox O2 Delivery O2 Flow Rate FiO2 07/22/24 16:53 97.3 64 14 113/75 (88) 99 97.3 07/22/24 08:00 Room Air* 0 21 Physical Exam General Appearance: Alert, Oriented X3, Cooperative HEENT: Atraumatic, PERRLA Respiratory: Clear to auscultation, Normal air movement Cardiovascular: Regular rate, Normal S1, Normal S2 Abdominal: Normal bowel sounds, Soft, Other (Mild tenderness to palpation) Extremities: No clubbing, No cyanosis, No edema Skin: No rashes, No breakdown Neuro: Normal gait, Normal speech Psych/Mental Status: Mental status NL, Mood NL Labs/Diagnostic Data Labs Test 07/22/24 18:43 07/22/24 05:27 07/21/24 17:00 07/21/24 16:57 Range/Units Sodium Level 142 136-145 mmol/L Potassium Level 3.5 3.5-5.1 mmol/L Chloride Level 111 H 98-107 mmol/L Carbon Dioxide Level 25 20-31 mmol/L Anion Gap 6 5-15 Blood Urea Nitrogen 10 9-23 mg/dL Creatinine 0.82 0.550-1.02 mg/dL Glomerular Filtration Rate Calc 93 >90 mL/min BUN/Creatinine Ratio 12.2 10.0-20.0 Serum Glucose 75 74-106 mg/dL Calcium Level 8.1 L 8.7-10.4 mg/dL Magnesium Level 1.9 1.6-2.6 mg/dL Total Bilirubin 0.3 0.2-1.0 mg/dL Aspartate Amino Transferase (AST) < 8 L 13-40 U/L Alanine Aminotransferase (ALT) 12 7-40 U/L Alkaline Phosphatase 73 46-116 U/L Total Protein 5.6 L 5.7-8.2 g/dL Albumin 3.5 3.2-4.8 g/dL White Blood Count 7.0 # 4.4-10.8 10^3/uL Red Blood Count 4.36 4.0-5.20 10^6/uL Hemoglobin 12.0 #L 12.2-16.2 g/dL Hematocrit 35.8 #L 36.0-46.0 % Mean Corpuscular Volume 82.2 80.0-100.0 fL Mean Corpuscular Hemoglobin 27.6 L 28.0-32.0 pg Mean Corpuscular Hemoglobin Concent 33.5 32.0-36.0 g/dL Red Cell Distribution Width 14.5 H 11.8-14.3 % Platelet Count 162 140-450 10^3/uL Mean Platelet Volume 9.3 6.9-10.8 fL Neutrophils (%) (Auto) 72.2 37.0-80.0 % Lymphocytes (%) (Auto) 19.7 10.0-50.0 % Monocytes (%) (Auto) 7.5 0.0-12.0 % Eosinophils (%) (Auto) 0.5 0.0-7.0 % Basophils (%) (Auto) 0.1 0.0-2.0 % Neutrophils # (Auto) 5.1 1.6-8.6 10 ^3/uL Lymphocytes # (Auto) 1.4 0.4-5.4 10 ^3/uL Monocytes # (Auto) 0.5 0-1.3 10 ^3/uL Eosinophils # (Auto) 0 0-0.8 10 ^3/uL Basophils # (Auto) 0 0-0.2 10 ^3/uL Nucleated Red Blood Cells 0.2 % Stool Occult Blood Positive Negative Stool Occult Blood Sample #3 Negative Stool for White Cells Few SARS-CoV-2 Antigen (Rapid) Negative NEGATIVE Test 07/21/24 14:32 07/21/24 12:50 07/21/24 12:34 Range/Units Lactic Acid Level 2.0 0.4-2.0 mmol/L Prothrombin Time 10.8 9.3-11.8 sec Prothrombin Time INR 1.02 0.9-1.15 Activated Partial Thromboplast Time < 20.0 L 24.5-34.5 SEC Lipase 26 12-53 U/L Beta HCG, Quantitative 2.2 1.5-4.2 mIU/mL Urine Color Dark-brown Yellow Urine Clarity Ex.turbid Clear Urine pH 5.5 5.0-9.0 Urine Specific [place] 1.025 1.001-1.035 Urine Protein 2+ H Negative Urine Ketones Trace Negative Urine Blood 3+ H Negative /uL Urine Nitrite Negative Negative Urine Bilirubin Negative Negative Urine Urobilinogen Normal Negative mg/dL Urine Leukocyte Esterase 2+ Negative /uL Urine RBC 7730 0 - 4 /hpf Urine WBC 63 0 - 5 /hpf Urine Squamous Epithelial Cells Mod <5 /hpf Urine Bacteria None seen None Seen /hpf Urine Mucus Moderate None Seen Urine Glucose Normal Normal mg/dL Microbiology Date/Time Source Procedure Growth Status 07/21/24 17:00 Stool Stool Culture - Preliminary Resulted 07/21/24 17:00 Stool Shiga Toxin I & II - Final Resulted 07/21/24 17:00 Stool Clostridium difficile Toxin Assay - Final Resulted 07/21/24 14:32 Blood Blood Culture - Preliminary NO GROWTH AFTER 24 [address]RS OF [address]. Result[address] CT SCAN ABD PELVIS IMPRESSION: 1. Gallbladder is been surgically removed. 2. There is no abnormally dilated bowel. 3. There are no findings of umbilical hernia. 4. Pancreas appears normal. Problems(with codes): (1) Nausea vomiting and diarrhea (2) Infectious diarrhea in adult patient (3) Periumbilical pain (4) Leukocytosis (5) Gastroenteritis Plan/Recommendation Assessment plan Patient is at this time on IV antibiotics, IV fluid hydration and pain control Her stool tests and cultures are negative and her leukocytosis is improving Patient is currently on her menstrual cycle I will recommend conservative management and supportive care Advance diet as tolerated When the patient is more stable she can be discharged on oral antibiotics Outpatient follow up with GI Services to discuss outpatient elective colonoscopy Once again thank you for allowing me to participate in the care of this patient Plan discussed with: Patient, Other (Nurse) ALISA GONCALVES MD Jul 22, 2024 21:49
[2024-07-23] VITALS (8 sets, daily range): BP systolic 99–120; BP diastolic 54–74; PULSE 62–81; RESP 16–19; TEMP 98–99.3; O2SAT 93–100
[2024-07-23 06:06] LABS: Basophils # (auto) 0 10 ^3/uL (0-0.2); Basophils % (auto) 0.4 % (0.0-2.0); Eosinophils # (auto) 0.1 10 ^3/uL (0-0.8); Eosinophils % (auto) 1.9 % (0.0-7.0); Hematocrit 36.1 % (36.0-46.0); Hemoglobin 12.1 g/dL (12.2-16.2); Lymphocytes # (auto) 2.2 10 ^3/uL (0.4-5.4); Lymphocytes % (auto) 36.2 % (10.0-50.0); Mean Corpuscular Hemoglobin 27.9 pg (28.0-32.0); Mean Corpuscular Hgb Conc. 33.6 g/dL (32.0-36.0); Mean Corpuscular Volume 83.2 fL (80.0-100.0); Monocytes # (auto) 0.8 10 ^3/uL (0-1.3); Monocytes % (auto) 13.2 % (0.0-12.0); Neutrophils # (auto) 2.9 10 ^3/uL (1.6-8.6); Neutrophils % (auto) 48.3 % (37.0-80.0); Nucleated Red Blood Cells % 0.2 %; Platelet Count (auto) 158 10^3/uL (140-450); Red Blood Cells 4.34 10^6/uL (4.0-5.20); Red Cell Distribution Width 14.3 % (11.8-14.3)
[2024-07-23 06:12] LABS: Anion Gap 7 (5-15); Carbon Dioxide 25 mmol/L (20-31); Potassium 3.9 mmol/L (3.5-5.1); Sodium 142 mmol/L (136-145)
[2024-07-23 06:18] LABS: Glucose 89 mg/dL (74-106)
[2024-07-23 06:22] LABS: Blood Urea Nitrogen 5 mg/dL (9-23); Calcium 8.4 mg/dL (8.7-10.4); Chloride 110 mmol/L (98-107)
--- NOTE | 2024-07-23 15:43 | DVHPN2 ---
Progress Note - Dictate Date Seen: Jul 23, 2024 Medical Necessity Reason Pt with a Central, PICC or Fol: No Subjective She was feeling better. She says her diarrhea is still there but slightly better. Had multiple bowel movements overnight per patient. vital signs Vital Sign Date Time Temp Pulse Resp B/P (MAP) Pulse Ox O2 Delivery O2 Flow Rate FiO2 07/23/24 13:00 99.3 71 19 115/74 (88) 96 99.3 07/23/24 08:00 Room Air* 0 21 Total Intake and Output 07/22/24 07/22/24 07/23/24 15:00 23:00 07:00 Intake Total 1550 ml 460 ml 1300 ml Balance 1550 ml 460 ml 1300 ml medications Current Medications Medications Dose Ordered Sig/[place] Route Start Time Stop Time Status Last Admin Dose Admin Acetaminophen 650 mg Q6HP PRN PO 07/21/24 21:30 07/21/24 22:46 650 MG Acetaminophen/ Hydrocodone Bitart 1 tab Q6HP PRN PO 07/21/24 21:30 07/22/24 11:28 1 TAB Ondansetron HCl 4 mg Q4HP PRN IV 07/21/24 21:30 Morphine Sulfate 2 mg Q4HPRN PRN IV 07/21/24 21:30 Nitroglycerin 0.4 mg Q5MINP PRN SL 07/21/24 21:30 Morphine Sulfate 2 mg Q30M PRN IV 07/21/24 21:30 Metronidazole 100 ml @ 100 mls/hr Q8H IV 07/22/24 02:30 07/23/24 11:31 100 MLS/HR Ceftriaxone Sodium 50 ml @ 100 mls/hr DAILY IV 07/22/24 10:00 07/23/24 09:55 100 MLS/HR Potassium Chloride/Sodium Chloride 1,000 ml @ 100 mls/hr Q10H IV 07/22/24 14:30 07/23/24 02:32 100 MLS/HR objective Alert awake oriented x3. Abdomen is soft nontender nondistended positive bowel sounds. Extremities no edema laboratory and microbiology Laboratory Tests 07/23/24 05:39 Test 07/23/24 05:39 Range/Units Serum Glucose 89 74-106 mg/dL Assessment/Plan So far her stool studies/workup is negative for any bacterial infection/etiology. Possible viral gastroenteritis. Continue treat supportively with IV fluids empiric antibiotics for now. Advance diet as she tolerates. Otherwise further clinical management per clinical course. Discussed with the patient and nurse at bedside regarding care plan. Problems(with codes): (1) Leukocytosis (2) Gastroenteritis (3) Nausea vomiting and diarrhea Plan discussed with: Other ELDA CHANG MD Jul 23, 2024 15:43
--- NOTE | 2024-07-24 00:04 | DVHINCON2 ---
Date of service: Jul 23, 2024 Family History: Diabetes mellitus G8 MOTHER FH: heart attack G8 FATHER High cholesterol G8 FATHER Allergies: Coded Allergies: Ciprofloxacin (Verified Allergy, Unknown, 07/21/24) Home Meds Active Scripts Cholestyramine (QUESTRAN POWDER) 4 Gm Pw, 4 GM PO BID, #10 POW Prov:ELDA CHANG MD 07/24/24 Vancomycin HCl (Vancomycin HCl) 250 Mg Cap, 250 MG PO TID, #14 CAP Prov:ELDA CHANG MD 07/24/24 Vital Signs Vital Signs Date Time Temp Pulse Resp B/P (MAP) Pulse Ox O2 Delivery O2 Flow Rate FiO2 07/23/24 22:00 98.0 65 18 107/69 (82) 93 98.0 07/23/24 08:00 Room Air* 0 21 Labs/Diagnostic Data Labs Test 07/23/24 05:39 07/22/24 18:43 07/21/24 17:00 07/21/24 16:57 Range/Units White Blood Count 6.0 4.4-10.8 10^3/uL Red Blood Count 4.34 4.0-5.20 10^6/uL Hemoglobin 12.1 L 12.2-16.2 g/dL Hematocrit 36.1 36.0-46.0 % Mean Corpuscular Volume 83.2 80.0-100.0 fL Mean Corpuscular Hemoglobin 27.9 L 28.0-32.0 pg Mean Corpuscular Hemoglobin Concent 33.6 32.0-36.0 g/dL Red Cell Distribution Width 14.3 11.8-14.3 % Platelet Count 158 140-450 10^3/uL Mean Platelet Volume 9.5 6.9-10.8 fL Neutrophils (%) (Auto) 48.3 37.0-80.0 % Lymphocytes (%) (Auto) 36.2 10.0-50.0 % Monocytes (%) (Auto) 13.2 H 0.0-12.0 % Eosinophils (%) (Auto) 1.9 0.0-7.0 % Basophils (%) (Auto) 0.4 0.0-2.0 % Neutrophils # (Auto) 2.9 1.6-8.6 10 ^3/uL Lymphocytes # (Auto) 2.2 0.4-5.4 10 ^3/uL Monocytes # (Auto) 0.8 0-1.3 10 ^3/uL Eosinophils # (Auto) 0.1 0-0.8 10 ^3/uL Basophils # (Auto) 0 0-0.2 10 ^3/uL Nucleated Red Blood Cells 0.2 % Sodium Level 142 136-145 mmol/L Potassium Level 3.9 3.5-5.1 mmol/L Chloride Level 110 H 98-107 mmol/L Carbon Dioxide Level 25 20-31 mmol/L Anion Gap 7 5-15 Blood Urea Nitrogen 5 L 9-23 mg/dL Creatinine 0.83 0.550-1.02 mg/dL Glomerular Filtration Rate Calc 92 >90 mL/min BUN/Creatinine Ratio 6.0 L 10.0-20.0 Serum Glucose 89 74-106 mg/dL Calcium Level 8.4 L 8.7-10.4 mg/dL Magnesium Level 1.9 1.6-2.6 mg/dL Total Bilirubin 0.3 0.2-1.0 mg/dL Aspartate Amino Transferase (AST) < 8 L 13-40 U/L Alanine Aminotransferase (ALT) 12 7-40 U/L Alkaline Phosphatase 73 46-116 U/L Total Protein 5.6 L 5.7-8.2 g/dL Albumin 3.5 3.2-4.8 g/dL Stool Occult Blood Positive Negative Stool Occult Blood Sample #3 Negative Stool for White Cells Few SARS-CoV-2 Antigen (Rapid) Negative NEGATIVE Test 07/21/24 14:32 07/21/24 12:50 07/21/24 12:34 Range/Units Lactic Acid Level 2.0 0.4-2.0 mmol/L Prothrombin Time 10.8 9.3-11.8 sec Prothrombin Time INR 1.02 0.9-1.15 Activated Partial Thromboplast Time < 20.0 L 24.5-34.5 SEC Lipase 26 12-53 U/L Beta HCG, Quantitative 2.2 1.5-4.2 mIU/mL Urine Color Dark-brown Yellow Urine Clarity Ex.turbid Clear Urine pH 5.5 5.0-9.0 Urine Specific [place] 1.025 1.001-1.035 Urine Protein 2+ H Negative Urine Ketones Trace Negative Urine Blood 3+ H Negative /uL Urine Nitrite Negative Negative Urine Bilirubin Negative Negative Urine Urobilinogen Normal Negative mg/dL Urine Leukocyte Esterase 2+ Negative /uL Urine RBC 7730 0 - 4 /hpf Urine WBC 63 0 - 5 /hpf Urine Squamous Epithelial Cells Mod <5 /hpf Urine Bacteria None seen None Seen /hpf Urine Mucus Moderate None Seen Urine Glucose Normal Normal mg/dL Microbiology Date/Time Source Procedure Growth Status 07/21/24 17:00 Stool Stool Culture - Preliminary Resulted 07/21/24 17:00 Stool Shiga Toxin I & II - Final Resulted 07/21/24 17:00 Stool Clostridium difficile Toxin Assay - Final Resulted 07/21/24 14:32 Blood Blood Culture - Preliminary NO GROWTH AFTER 48 HOURS OF INCUBATION. Resulted Problems(with codes): (1) Gastroenteritis (2) Leukocytosis (3) Infectious diarrhea in adult patient (4) Nausea vomiting and diarrhea (5) Periumbilical pain Plan/Recommendation - ASSESSMENT AND PLAN: ID Problem List: - Acute abdominal pain - Nodular diarrhea - Bronchitis Assessment: This is an unknown-age, likely adult, female, who presents with complaints of acute abdominal pain and nodular diarrhea for the last three days. She noted blood in her stool but is unsure if it is related to vaginal bleeding. The patient has a recent diagnosis of bronchitis and has been placed on steroids. She has no history of IBS or IBD, and there is no recent antibiotic use. The patient does not smoke, consume alcohol, or have a family history of such, nor is she sexually active. Upon admission, she had been receiving ceftriaxone and flagyl. The diarrhea has been improving. - Temp: 38.9C - Pulse: 72 - Resp: 10 - Blood Pressure: 120/79 - O2 Saturation: 95% on room air Physical exam reveals tenderness in the suprapubic region, otherwise non- significant. Stool guaiac was positive, and the COVID-19 antigen test was negative. Laboratory findings include: WBC: 3.9 - Hemoglobin: 11.4 g/dL - Platelet count: 230 - Total bilirubin: 0.4 mg/dL AST: 10 U/L ALT: 18 U/L - Urinalysis: +1 blood, 2+ leukocytes; no bacteria seen Stool culture was negative for bacteria and C. diff toxin. The CT scan indicated normal pancreas, surgically removed gallbladder, and no abnormally dilated bowel. Plan: - Continue current antibiotics: ceftriaxone and flagyl. - Prescribe ciprofloxacin 500 mg PO BID when the patient is ready for discharge. - Keep the patient on a liquid diet. - Recommend follow-up with a wire harness assembler if diarrhea persists after antibiotics, including colonoscopy for inflammatory bowel disease evaluation. Assessment and plan were discussed with the patient as written above. Plan subject to change pending new diagnostic information. Updates may be added as an addendum. Thank you for the interesting consult. ID will continue to follow. Please contact Infectious Disease for any questions or concerns. Dontrell Harris M.D. [facility] Ph: ? HISTORY: The patient's chart and medications were reviewed in detail and the patient was seen and examined. History obtained from the patient. Kenny is an unknown-age, likely adult, female, who presents with complaints of acute abdominal pain and nodular diarrhea for the last three days. She had noted blood in her stool but is unsure if it was related to vaginal bleeding. Recently diagnosed with bronchitis and placed on steroids. She has no history of IBS or IBD, no recent antibiotic use. The patient does not smoke, drink alcohol, or have a family history of such, and is not sexually active. - REVIEW OF SYSTEMS: A complete 10-system review of systems was completed and negative except as noted in the HPI or here. - CONSTITUTIONAL: Denies weight loss, fever, and chills. - HEENT: Denies changes in vision and hearing. - RESPIRATORY: Denies SOB and cough. - CV: Denies palpitations and chest pain. - GI: Complains of abdominal pain and diarrhea. - : Denies dysuria and urinary frequency. - MSK: Denies myalgia and joint pain. - SKIN: Denies rash and pruritus. - NEUROLOGICAL: Denies headache and syncope. - PSYCHIATRIC: Denies recent changes in mood, anxiety, and depression. 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 - Stroke (HCC) Past Surgical History: - Gallbladder surgically removed, date not specified Home Medications: - None listed Allergies: - No known allergies Family History: - Prostate cancer (Father) - Diabetes (Sister) - Prostate cancer (Brother) - Father, Sister, and Brother: not specified Social History: - Marital status: - Tobacco Use: Never - Alcohol Use: Never - Drug Use: Never - Sexual activity: Not Currently OBJECTIVE: Vital Signs on Arrival: - Temp: 38.9C BP: 120/79 - Pulse: 72 - Resp: 10 - SpO2: 95% on room air Most Recent Vital Signs (if different): - None provided Admission Weight: Not specified Physical Exam: - General: NAD - Neck: Supple. No masses. - HEENT: PERRL. Normal lids and conjunctiva. Moist mucous membranes. Oropharynx without lesions, exudates or excessive erythema. Normal appearance of the external aspects of the nose and ears. - Heart: Regular rhythm, normal rate. No murmur. No lower extremity edema. - Lungs: Normal respiratory effort. Clear to auscultation bilaterally. No wheezes. No crackles. - Abdomen: Soft. Non-tender. Non-distended. There is tenderness in the suprapubic region. No masses or abdominal hernia. - Msk: No digital cyanosis. Normal strength and tone in all four limbs. - Skin: Warm and dry, no rashes. - Neuro: Alert. No facial droop or slurred speech. Extra-ocular movements intact. Sensation intact to soft touch in all four limbs. - Psych: Appropriate mood. Full affect. Oriented to person, place, time, and situation. Lines: None specified. - DIAGNOSTIC STUDIES: Available diagnostic studies were reviewed personally. Significant relevant results and findings are outlined below or addressed in the Assessment and Plan above. Pertinent Imaging: - XR Foot Left 3 + Vw: - Impression: No fracture, dislocation, or destructive osseous lesion seen. Osteopenia. Scattered degenerative changes. - VAS Lower Extremity Arteries Left: - Impression: Significant decrease in velocity between the common femoral artery and the superficial femoral artery suggesting stenosis between these segments. Slow flow in the dorsalis pedis artery with tardus parvus monophasic waveform. Monophasic waveforms in the other calf arteries. 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 Right anterior tibial artery is occluded shortly after its takeoff. Right posterior tibial artery is occluded a few centimeters after its takeoff, with reconstitution distally at the level of the ankle. Plan discussed with: Patient DONTRELL HARRIS MD Jul 24, 2024 00:04
[2024-07-24 01:00] VITALS: BP 102/62; PULSE 63; RESP 18; TEMP 98.2; O2SAT 98
[2024-07-24 05:00] VITALS: BP 110/67; PULSE 67; RESP 18; TEMP 97.8; O2SAT 99
[2024-07-24 05:57] LABS: Basophils # (auto) 0 10 ^3/uL (0-0.2); Basophils % (auto) 0.3 % (0.0-2.0); Eosinophils # (auto) 0.2 10 ^3/uL (0-0.8); Eosinophils % (auto) 3.1 % (0.0-7.0); Hematocrit 37.6 % (36.0-46.0); Hemoglobin 12.6 g/dL (12.2-16.2); Lymphocytes # (auto) 3.1 10 ^3/uL (0.4-5.4); Lymphocytes % (auto) 42.8 % (10.0-50.0); Mean Corpuscular Hemoglobin 27.9 pg (28.0-32.0); Mean Corpuscular Hgb Conc. 33.5 g/dL (32.0-36.0); Mean Corpuscular Volume 83.1 fL (80.0-100.0); Monocytes # (auto) 0.8 10 ^3/uL (0-1.3); Monocytes % (auto) 11.2 % (0.0-12.0); Neutrophils # (auto) 3.1 10 ^3/uL (1.6-8.6); Neutrophils % (auto) 42.6 % (37.0-80.0); Platelet Count (auto) 181 10^3/uL (140-450); Red Blood Cells 4.52 10^6/uL (4.0-5.20); Red Cell Distribution Width 14.1 % (11.8-14.3); White Blood Cell 7.2 10^3/uL (4.4-10.8)
[2024-07-24 06:10] LABS: Calcium 8.8 mg/dL (8.7-10.4); Sodium 142 mmol/L (136-145)
[2024-07-24 06:11] LABS: Anion Gap 9 (5-15); Carbon Dioxide 25 mmol/L (20-31)
[2024-07-24 06:16] LABS: BUN/Creatinine Ratio 9.9 (10.0-20.0); Chloride 108 mmol/L (98-107); Glucose 104 mg/dL (74-106); Potassium 3.4 mmol/L (3.5-5.1)
[2024-07-24 06:29] LABS: Blood Urea Nitrogen 9 mg/dL (9-23)
[2024-07-24 08:00] VITALS: PULSE 59
[2024-07-24 09:04] VITALS: BP 100/62; PULSE 58; RESP 16; TEMP 98.3; O2SAT 97
[2024-07-24 11:42] VITALS: PULSE 59
[2024-07-24 12:44] VITALS: BP 127/82; PULSE 74; RESP 18; TEMP 98.2; O2SAT 97
[2024-07-24] MEDS: POTASSIUM CHL 20 Meq TABLET PO ONE (12:54)
[2024-07-24] MEDS ORDERED: CHL4PW PO (13:29)
[2024-07-24] MEDS ORDERED: VANC250C4 PO (13:29)
--- NOTE | 2024-07-24 13:30 | DVHDS2 ---
Discharge Summary Date of Admission Jul 21, 2024 at 21:18 Date of Discharge: Jul 24, 2024 Labs/Diagnostic Data: Laboratory Results Test 07/24/24 05:28 07/22/24 18:43 07/21/24 17:00 07/21/24 16:57 White Blood Count 7.2 10^3/uL (4.4-10.8) Red Blood Count 4.52 10^6/uL (4.0-5.20) Hemoglobin 12.6 g/dL (12.2-16.2) Hematocrit 37.6 % (36.0-46.0) Mean Corpuscular Volume 83.1 fL (80.0-100.0) Mean Corpuscular Hemoglobin 27.9 pg (28.0-32.0) Mean Corpuscular Hemoglobin Concent 33.5 g/dL (32.0-36.0) Red Cell Distribution Width 14.1 % (11.8-14.3) Platelet Count 181 10^3/uL (140-450) Mean Platelet Volume 9.5 fL (6.9-10.8) Neutrophils (%) (Auto) 42.6 % (37.0-80.0) Lymphocytes (%) (Auto) 42.8 % (10.0-50.0) Monocytes (%) (Auto) 11.2 % (0.0-12.0) Eosinophils (%) (Auto) 3.1 % (0.0-7.0) Basophils (%) (Auto) 0.3 % (0.0-2.0) Neutrophils # (Auto) 3.1 10 ^3/uL (1.6-8.6) Lymphocytes # (Auto) 3.1 10 ^3/uL (0.4-5.4) Monocytes # (Auto) 0.8 10 ^3/uL (0-1.3) Eosinophils # (Auto) 0.2 10 ^3/uL (0-0.8) Basophils # (Auto) 0 10 ^3/uL (0-0.2) Nucleated Red Blood Cells 0.0 % Sodium Level 142 mmol/L (136-145) Potassium Level 3.4 mmol/L (3.5-5.1) Chloride Level 108 mmol/L (98-107) Carbon Dioxide Level 25 mmol/L (20-31) Anion Gap 9 (5-15) Blood Urea Nitrogen 9 mg/dL (9-23) Creatinine 0.91 mg/dL (0.550-1.02) Glomerular Filtration Rate Calc 82 mL/min (>90) BUN/Creatinine Ratio 9.9 (10.0-20.0) Serum Glucose 104 mg/dL (74-106) Calcium Level 8.8 mg/dL (8.7-10.4) Magnesium Level 1.9 mg/dL (1.6-2.6) Total Bilirubin 0.3 mg/dL (0.2-1.0) Aspartate Amino Transferase (AST) < 8 U/L (13-40) Alanine Aminotransferase (ALT) 12 U/L (7-40) Alkaline Phosphatase 73 U/L (46-116) Total Protein 5.6 g/dL (5.7-8.2) Albumin 3.5 g/dL (3.2-4.8) Stool Occult Blood Positive (Negative) Stool Occult Blood Sample #3 (Negative) Stool for White Cells Few SARS-CoV-2 Antigen (Rapid) Negative (NEGATIVE) Test 07/21/24 14:32 07/21/24 12:50 07/21/24 12:34 Lactic Acid Level 2.0 mmol/L (0.4-2.0) Prothrombin Time 10.8 sec (9.3-11.8) Prothrombin Time INR 1.02 (0.9-1.15) Activated Partial Thromboplast Time < 20.0 SEC (24.5-34.5) Lipase 26 U/L (12-53) Beta HCG, Quantitative 2.2 mIU/mL (1.5-4.2) Urine Color Dark-brown (Yellow) Urine Clarity Ex.turbid (Clear) Urine pH 5.5 (5.0-9.0) Urine Specific [place] 1.025 (1.001-1.035) Urine Protein 2+ (Negative) Urine Ketones Trace (Negative) Urine Blood 3+ /uL (Negative) Urine Nitrite Negative (Negative) Urine Bilirubin Negative (Negative) Urine Urobilinogen Normal mg/dL (Negative) Urine Leukocyte Esterase 2+ /uL (Negative) Urine RBC 7730 /hpf (0 - 4) Urine WBC 63 /hpf (0 - 5) Urine Squamous Epithelial Cells Mod /hpf (<5) Urine Bacteria None seen /hpf (None Seen) Urine Mucus Moderate (None Seen) Urine Glucose Normal mg/dL (Normal) Other Laboratory Tests 07/24/24 05:28 Final Diagnosis/Problems List Gastroenteritis/colitis Discharge Disposition: Home Discharge Instruct/Medications Diet: Consistent carbohydrate, Cardiac 2g Na,low cholest Activity: No Restrictions, As Tolerated Follow Up/Referral: Primary care physician next week and with the behavioral health care manager Dr. Monica Bermudez in 2-3 weeks for further evaluation of colitis and management Medications: As prescribed Discharge Statement: "Patient was advised to return to the ER or call 911 if any headaches, dizziness, shortness of breath, chest pain, abdominal pain, bleeding, fevers, or worsening of medical condition. Patient was counseled about treatment plan, medications, possible side effects, patientverbalized understanding. All questions were answered to the best of my ability. This discharge took greater then 30 minutes in planning, reviewing documentation, counseling the patient, and discussing with other team members." ASSESSMENT ASSESSMENT Assessment Gastroenteritis/colitis ELDA CHANG MD Jul 24, 2024 13:30
--- NOTE | 2024-07-24 19:10 | DVHPN2 ---
Progress Note - Dictate Date Seen: Jul 24, 2024 (Late entry Time of visit was 12 pm) Medical Necessity Reason Pt with a Central, PICC or Fol: No Subjective No new complaints Patient is still having loose stools but diarrhea is improving Stool cultures, C diff and blood cultures were negative vital signs Vital Sign Date Time Temp Pulse Resp B/P (MAP) Pulse Ox O2 Delivery O2 Flow Rate FiO2 07/24/24 12:44 98.2 74 18 127/82 (97) 97 98.2 07/24/24 08:00 Room Air* 0 21 Total Intake and Output 07/23/24 07/23/24 07/24/24 15:00 23:00 07:00 Intake Total 150 ml 1549 ml 300 ml Balance 150 ml 1549 ml 300 ml objective Alert awake oriented x3. Abdomen is soft nontender nondistended positive bowel sounds. Extremities no edema laboratory and microbiology Laboratory Tests 07/24/24 05:28 Test 07/24/24 05:28 Range/Units Serum Glucose 104 74-106 mg/dL Problems(with codes): (1) Nausea vomiting and diarrhea (2) Infectious diarrhea in adult patient (3) Periumbilical pain (4) Leukocytosis (5) Gastroenteritis Prognosis Plan Patient has been seen by ID consult and they concurred that the patient can be discharged home on p.o. antibiotics She can take Lomotil or Imodium as needed as needed Outpatient follow up with me next available appointment to discuss elective screening colonoscopy Increase fluid intake Discharge planning is in progress Plan discussed with: Other (Nurse) ALISA GONCALVES MD Jul 24, 2024 19:10
--- NOTE | 2024-07-24 22:42 | DVHPN2 ---
Consult Progress Note Date Seen: Jul 24, 2024 Subjective Patient reports: Feels better (diarrhea resolved) Objective vital signs Vital Sign Date Time Temp Pulse Resp B/P (MAP) Pulse Ox O2 Delivery O2 Flow Rate FiO2 07/24/24 12:44 98.2 74 18 127/82 (97) 97 98.2 07/24/24 08:00 Room Air* 0 21 Total Intake and Output 07/23/24 07/23/24 07/24/24 15:00 23:00 07:00 Intake Total 150 ml 1549 ml 300 ml Balance 150 ml 1549 ml 300 ml medications Physical Exam: - General: NAD - Neck: Supple. No masses. - HEENT: PERRL. Normal lids and conjunctiva. Moist mucous membranes. Oropharynx without lesions, exudates or excessive erythema. Normal appearance of the external aspects of the nose and ears. - Heart: Regular rhythm, normal rate. No murmur. No lower extremity edema. - Lungs: Normal respiratory effort. Clear to auscultation bilaterally. No wheezes. No crackles. - Abdomen: Soft. Non-tender. Non-distended. There is tenderness in the suprapubic region. No masses or abdominal hernia. - Msk: No digital cyanosis. Normal strength and tone in all four limbs. - Skin: Warm and dry, no rashes. - Neuro: Alert. No facial droop or slurred speech. Extra-ocular movements intact. Sensation intact to soft touch in all four limbs. - Psych: Appropriate mood. Full affect. Oriented to person, place, time, and situation. laboratory and microbiology Laboratory Tests 07/24/24 05:28 Test 07/24/24 05:28 Range/Units Serum Glucose 104 74-106 mg/dL Problem List/Assessment/Plan Problem List/Assessment/Plan - ASSESSMENT AND PLAN: ID Problem List: - Acute abdominal pain - Nodular diarrhea - Bronchitis Assessment: This is an unknown-age, likely adult, female, who presents with complaints of acute abdominal pain and nodular diarrhea for the last three days. She noted blood in her stool but is unsure if it is related to vaginal bleeding. The patient has a recent diagnosis of bronchitis and has been placed on steroids. She has no history of IBS or IBD, and there is no recent antibiotic use. The patient does not smoke, consume alcohol, or have a family history of such, nor is she sexually active. Upon admission, she had been receiving ceftriaxone and flagyl. The diarrhea has been improving. - Temp: 38.9C - Pulse: 72 - Resp: 10 - Blood Pressure: 120/79 - O2 Saturation: 95% on room air Physical exam reveals tenderness in the suprapubic region, otherwise non- significant. Stool guaiac was positive, and the COVID-19 antigen test was negative. Laboratory findings include: WBC: 3.9 - Hemoglobin: 11.4 g/dL - Platelet count: 230 - Total bilirubin: 0.4 mg/dL AST: 10 U/L ALT: 18 U/L - Urinalysis: +1 blood, 2+ leukocytes; no bacteria seen Stool culture was negative for bacteria and C. diff toxin. The CT scan indicated normal pancreas, surgically removed gallbladder, and no abnormally dilated bowel. Plan: - Continue current antibiotics: ceftriaxone and flagyl. - Prescribe ciprofloxacin 500 mg PO BID when the patient is ready for discharge. - Keep the patient on a liquid diet. - Recommend follow-up with a computer typesetter keyliner if diarrhea persists after antibiotics, including colonoscopy for inflammatory bowel disease evaluation. Assessment and plan were discussed with the patient as written above. Plan subject to change pending new diagnostic information. Updates may be added as an addendum. Thank you for the interesting consult. ID will continue to follow. Please contact Infectious Disease for any questions or concerns. Dontrell Harris M.D. [facility] Ph: ? Plan discussed with: Patient DONTRELL HARRIS MD Jul 24, 2024 22:42
== END 2024-07-24 14:23 | disposition home or self-care (01) | DRG 249 ==
LOC: ER 11:55 → TELE 21:18 → TELE-EAST 07-22 01:16
PROVIDERS: ADMIT Nurse Practitioner Family; ATTEND Nurse Practitioner Family
DX: A09 Infectious gastroenteritis and colitis, unspecified (principal); D72.829 Elevated white blood cell count, unspecified; N39.0 Urinary tract infection, site not specified; Z20.822 Contact with and (suspected) exposure to COVID-19; N94.6 Dysmenorrhea, unspecified; Z90.49 Acquired absence of other specified parts of digestive tract; Z88.1 Allergy status to other antibiotic agents; Z83.3 Family history of diabetes mellitus; Z82.49 Family history of ischemic heart disease and other diseases of the circulatory system
CPT/HCPCS: 36415; 74176; 76856; 80048; 80053; 81001; 82270; 83605; 83690; 83735; 84702; 85025; 85048; 85610; 85730; 86850; 86900; 86901; 87040; 87045; 87177; 87426; 87427; 87493; 93005; G0378; J2405; J3490